=== PATIENT | male | born 1955 | race Caucasian/White ===

== ENCOUNTER 2024-04-19 14:32 | Emergency (ER) | payer MEDICARE, OTHER ==
[~2024-04-19] VITALS: Ht 182.9 cm; Wt 75.0 kg
[2024-04-19 14:49] VITALS: TEMP 97.5
[2024-04-19] MEDS ORDERED: FOLI-130 PO (15:12)
[2024-04-19] MEDS ORDERED: DIVA-111 PO ×2 (15:12)
[2024-04-19] MEDS ORDERED: CHOL25TA4 PO (15:12)
[2024-04-19] MEDS ORDERED: OLAN10TA26 PO ×3 (15:12)
[2024-04-19] MEDS ORDERED: FERR325T27 PO (15:12)
[2024-04-19] MEDS ORDERED: LEVO75 PO (15:12)
[2024-04-19] MEDS ORDERED: TAMS0.4C94 PO (15:12)
[2024-04-19] MEDS ORDERED: PANT-31 PO (15:12)
[2024-04-19] MEDS ORDERED: PSYL575P22 PO (15:12)
[2024-04-19] MEDS ORDERED: MESA1.2T3 PO (15:12)
[2024-04-19] MEDS: ONDANSETRON HCL 4 MG TABLET PO ONE (16:29)
[2024-04-19 18:35] VITALS: BP 129/67; PULSE 85; RESP 18
== END 2024-04-19 18:58 | disposition home or self-care (01) ==
LOC: EMS 14:32
DX: T17.928A Food in respiratory tract, part unspecified causing other injury, initial encounter (principal); W44.F3XA Food entering into or through a natural orifice, initial encounter; Y93.89 Activity, other specified; Y92.89 Other specified places as the place of occurrence of the external cause; Y99.8 Other external cause status; E03.9 Hypothyroidism, unspecified; F20.9 Schizophrenia, unspecified; Z88.5 Allergy status to narcotic agent; Z88.8 Allergy status to other drugs, medicaments and biological substances
CPT/HCPCS: 99284; 71046; 70360; Q0162

== ENCOUNTER 2024-06-07 17:02 | Emergency (ER) | payer MEDICARE, OTHER ==
[~2024-06-07] VITALS: Ht 182.9 cm; Wt 52.3 kg
[~2024-06-07 17:02] MED LIST: CHOL25TA4 PO; DIVA-111 PO; FERR325T27 PO; FOLI-130 PO; LEVO75 PO; MESA1.2T3 PO; OLAN10TA26 PO; PANT-31 PO; PSYL575P22 PO; TAMS0.4C94 PO
[2024-06-07] MEDS ORDERED: NYST60PO TP (20:23)
[2024-06-07] MEDS ORDERED: ACET-3385 PO (20:36)
[2024-06-07] MEDS ORDERED: IBUP-1506 PO (20:36)
[2024-06-07] MEDS: ACETAMINOPHEN 325 MG TABLET PO ONE (20:46)
[2024-06-07 20:49] VITALS: BP 123/83; PULSE 63; RESP 16; TEMP 97.9
== END 2024-06-07 21:12 | disposition home or self-care (01) ==
LOC: EMS 17:02
DX: M25.562 Pain in left knee (principal); M25.561 Pain in right knee; E03.9 Hypothyroidism, unspecified; F20.9 Schizophrenia, unspecified; Z98.890 Other specified postprocedural states; Z88.5 Allergy status to narcotic agent; Z88.8 Allergy status to other drugs, medicaments and biological substances
CPT/HCPCS: 99283

== ENCOUNTER 2024-06-14 11:56 | Emergency (ER) | payer MEDICARE, OTHER ==
[~2024-06-14] VITALS: Ht 193 cm; Wt 68.2 kg
[~2024-06-14 11:56] MED LIST changes: +ACET-3385 PO; +IBUP-1506 PO; +NYST60PO TP
[2024-06-14 12:20] VITALS: TEMP 98
[2024-06-14] MEDS ORDERED: NYST30CR9 TP (12:25)
[2024-06-14] MEDS ORDERED: FERR325T23 PO (12:25)
[2024-06-14] MEDS ORDERED: PANT40TA54 PO (12:25)
[2024-06-14] MEDS ORDERED: OLAN10TA22 PO (12:25)
[2024-06-14] MEDS ORDERED: CHOL200059 PO (12:25)
[2024-06-14 15:20] LABS: BASOPHILS % (AUTO) 0.4 % (0.0-2.0); HEMATOCRIT 44.6 % (41-53); HEMOGLOBIN 14.8 g/dL (13.5-17.5); LYMPHOCYTES # (AUTO) 1.9 K/uL (1.0-4.8); LYMPHOCYTES % (AUTO) 31.2 % (22.0-44.0); MEAN CORPUSCULAR HEMOGLOBIN 30.9 pg (26.0-34.0); MEAN CORPUSCULAR HGB CONC 33.2 G/dL (31.0-37.0); MEAN CORPUSCULAR VOLUME 93 fL (80-100); MONOCYTES # (AUTO) 0.6 K/uL (0.1-1.0); NEUTROPHILS # (AUTO) 3.6 K/uL (1.8-7.7); NEUTROPHILS % (AUTO) 57.4 % (40.0-70.0); PLATELET COUNT (AUTO) 187 K/uL (150-450); RED CELL DISTRIBUTION WIDTH 15.4 % (11.5-14.5); WHITE BLOOD COUNT (AUTO) 6.2 K/uL (4.5-11.0)
[2024-06-14 15:28] LABS: ANION GAP 8 mmol/L (8-16); CALCIUM, TOTAL 9.1 mg/dL (8.8-10.5); CARBON DIOXIDE 28 mmol/L (22-29); CHLORIDE 101 mmol/L (98-107); CREATININE 1.02 mg/dL (0.60-1.30); GLOMERULAR FILTR. RATE CALC > 60 mL/min (>60); GLUCOSE,RANDOM 79 mg/dL (70-110); POTASSIUM 4.3 mmol/L (3.5-5.1); SODIUM SERUM 137 mmol/L (136-145); UREA NITROGEN, BLOOD 13 mg/dL (7-18)
[2024-06-14 15:38] LABS: B-TYPE NATRIURETIC PEPTIDE 18 pg/mL (0-100)
[2024-06-14 16:30] VITALS: BP 110/69; PULSE 60; RESP 14
== END 2024-06-14 17:07 | disposition home or self-care (01) ==
LOC: EMS 11:56
DX: M79.89 Other specified soft tissue disorders (principal); E03.9 Hypothyroidism, unspecified; F20.9 Schizophrenia, unspecified; Z98.890 Other specified postprocedural states; Z88.5 Allergy status to narcotic agent; Z88.8 Allergy status to other drugs, medicaments and biological substances
CPT/HCPCS: 80048; 83880; 84443; 85025; 93005; 93970; 99284